=== PATIENT | female | born 1980 | race Caucasian/White ===

== ENCOUNTER 2020-05-02 12:26 | Outpatient (CLI) | payer OTHER, SELFPAY ==
[2020-05-02 14:38] LABS: SARS-CoV-2 Ag Negative (Negative)
[2020-05-03 14:04] LABS: SARS-CoV-2 RNA PCR Positive
== END 2020-05-02 12:27 | disposition home or self-care (01) ==
LOC: CHSLAB 12:32
PROVIDERS: PCP Family Medicine; Visit Provider Family Medicine
DX: Z20.828 Contact with and (suspected) exposure to other viral communicable diseases (principal)
CPT/HCPCS: 87426; 87635; C9803; U0003

== ENCOUNTER → 2020-09-23 01:06 | Outpatient (CLI) | payer OTHER, SELFPAY ==
[2020-09-23 18:53] LABS: SARS-CoV-2 RNA PCR Negative
== END ==
PROVIDERS: PCP Internal Medicine; Visit Provider Internal Medicine Gastroenterology
DX: Z01.812 Encounter for preprocedural laboratory examination (principal); Z20.822 Contact with and (suspected) exposure to COVID-19
CPT/HCPCS: C9803; U0003; U0005

== ENCOUNTER 2020-09-26 01:02 | Day surgery (SDC) | payer OTHER, SELFPAY ==
[2020-09-18 12:47] VITALS: BMI 44.1
[2020-09-26 12:13] VITALS: BP 140/101; PULSE 92; RESP 20; TEMP 36.6; O2SAT 100; BMI 44.4
[2020-09-26] MEDS: LACTATED RINGERS 1,000 ML 150 ML IV CONT (12:24)
--- NOTE | 2020-09-26 13:09 | WPDANESEPPF ---
Anes - Initial Pre Proc Eval Procedure: Operation Date: 09/26/20 13:00 Proposed Procedures p Esophagogastroduodenoscopy - Timur Partida MD Date/Time: 09/26/20 13:09 Surgeon: Timur Partida MD Pre Op Diagnosis: GERD Patient Data Age: 40 Gender: F Height: 5 ft 3 in Weight: 113.6 kg Last Vital Signs Temp 97.8 F 09/26/20 12:13 Pulse 92 09/26/20 12:13 Resp 20 09/26/20 12:13 BP 140/101 H 09/26/20 12:13 Pulse Ox 100 09/26/20 12:13 Allergies Allergy/AdvReac Type Severity Reaction Status Date / Time No Known Allergies Allergy Verified 09/26/20 12:11 Home Medications Medication Instructions Recorded Confirmed Type valacyclovir 1 gram tablet 1,000 mg PO DAILY 30 Days #30 06/29/20 09/13/20 Rx tablet phentermine 37.5 mg capsule 37.5 mg PO DAILY 30 Days #30 cap 07/27/20 09/13/20 Rx pantoprazole 40 mg tablet,delayed 40 mg PO QAM 30 Days #30 tablet 09/19/20 09/26/20 Rx release Patient hx anesthesia problems: none Family hx anesthesia problems: none PMFSH Past Medical History Medical History (Updated 09/26/20 @ 13:08 by Oskar Duran MD) Chronic GERD Obesity, morbid, BMI 40.0-49.9 Social History Social History Smoking status: Former smoker Tobacco type: cigarettes Alcohol intake: current Drinks per week: 1 Substance use: former Living arrangements: with family Gender identity (if verbalized by the patient): Female Spiritual care concerns: No Anes - Eval Final PreProcedure Day of Procedure 09/26/20 13:09 Patient weight: morbidly obese Heart: regular rate and rhythm Lungs: clear to auscultation Airway: Mallampati scale class III Neurological: alert and oriented Last oral intake: >/= 8 hours ASA classification: III Emergent: no Anesthetic plan: proceed Anesthesia type and monitoring: general GIVS and standard monitoring Informed Consent: The patient's anesthetic plan and its attendant risks and benefits were discussed with the patient/family/POA. Questions were solicited and answers provided to the satisfaction of the patient/family/POA.
--- NOTE | 2020-09-26 13:41 | PM.HPGS ---
History of Present Illness History of Present Illness Consent: Risks, benefits, and alternatives have been discussed and questions answered. Patient agrees to proceed with procedure. Chief complaint: GERD Narrative: Saira Ramirez is a 40 year old female with gerd for more than 10 years on protonix Review of Systems Constitutional: Constitutional: Denies headache(s) and Denies weakness Eyes: Eyes: Denies blurry vision ENT: Reports Normal hearing present, Denies headache(s) and Denies neck pain Cardiovascular: Cardiovascular: Denies chest pain and Denies dyspnea Respiratory: Respiratory: Denies dyspnea Gastrointestinal: Gastrointestinal: Reports no additional gastrointestinal complaints Genitourinary: Genitourinary: Denies dysuria Musculoskeletal: Musculoskeletal: Denies neck pain Integumentary/Breasts: Skin/Breast: Denies dry skin Neurologic: Reports Normal hearing present, Denies headache(s) and Denies weakness Psychiatric: Psychiatric: Denies anxiety Endocrine: Endocrine: Denies change in body appearance Hematologic/Lymphatic: Hematologic/Lymphatic: Denies easy bleeding Allergic/Immunologic: Allergic/Immunologic: Denies urticaria PMFSH Past Medical History Medical History (Updated 09/26/20 @ 13:41 by Timur Partida MD) Chronic GERD Obesity, morbid, BMI 40.0-49.9 Social History Social History Smoking status: Former smoker Tobacco type: cigarettes Alcohol intake: current Drinks per week: 1 Substance use: former Living arrangements: with family Gender identity (if verbalized by the patient): Female Spiritual care concerns: No Meds Home Medications and Allergies Home Medications Medication Instructions Recorded Confirmed Type valacyclovir 1 gram tablet 1,000 mg PO DAILY 30 Days #30 06/29/20 09/13/20 Rx tablet phentermine 37.5 mg capsule 37.5 mg PO DAILY 30 Days #30 cap 07/27/20 09/13/20 Rx pantoprazole 40 mg tablet,delayed 40 mg PO QAM 30 Days #30 tablet 09/19/20 09/26/20 Rx release Allergies Allergy/AdvReac Type Severity Reaction Status Date / Time No Known Allergies Allergy Verified 09/26/20 12:11 Vital Signs Vital Signs - 24 hr 09/26/20 12:13 Temperature 97.8 F Pulse Rate 92 Respiratory Rate 20 Blood Pressure 140/101 H Pulse Oximetry 100 Exam Const: General: comfortable and no acute distress HENMT: General nose exam: Normal nares present Eyes: General: appearance normal, both eyes and all related structures Neck: Neck: no JVD Resp: Auscultation: clear to auscultation bilaterally Cardio: Rate: regular rate Rhythm: regular rhythm GI: Inspection: non-distended GI Palp: Yes Soft to palpation Skin: General skin exam: normal color Neuro: General: gait normal Speech: normal speech Extrem: General: normal to inspection Psych: Mental Status: mental status grossly normal Assessment and Plan Assessment and plan (1) Chronic GERD: Code(s): K21.9 - Gastro-esophageal reflux disease without esophagitis Status: Acute Assessment and Plan: egd with bx, already on ppi
[2020-09-26 13:53] VITALS: BP 104/66; PULSE 83; RESP 27; O2SAT 100
[2020-09-26 14:03] VITALS: BP 116/68; PULSE 77; RESP 24; O2SAT 100
[2020-09-26 14:13] VITALS: BP 111/72; PULSE 67; RESP 20; O2SAT 100
== END 2020-09-26 14:20 | disposition home or self-care (01) ==
PROVIDERS: PCP Internal Medicine; Visit Provider Internal Medicine Gastroenterology
PROC: 0DJ08ZZ Inspection of Upper Intestinal Tract, Via Natural or Artificial Opening Endoscopic (ICD-10-PCS; CPT 43235; principal; 2020-09-26 13:00)
DX: K21.00 Gastro-esophageal reflux disease with esophagitis, without bleeding (principal); K44.9 Diaphragmatic hernia without obstruction or gangrene; K29.50 Unspecified chronic gastritis without bleeding; Z87.891 Personal history of nicotine dependence; E66.01 Morbid (severe) obesity due to excess calories; Z68.41 Body mass index [BMI] 40.0-44.9, adult
CPT/HCPCS: 43239; 88305; J2704; J7120

== ENCOUNTER 2022-05-01 00:41 | Day surgery (SDC) | payer OTHER, SELFPAY ==
[2022-04-24 10:33] VITALS: BMI 46.8
[2022-05-01 12:14] VITALS: BP 146/84; PULSE 95; RESP 18; TEMP 36.2; O2SAT 100; BMI 47.0
[2022-05-01] MEDS: LACTATED RINGERS 1,000 ML 150 ML IV CONT (12:23)
--- NOTE | 2022-05-01 12:25 | PM.HPGS ---
History of Present Illness History of Present Illness Consent: Risks, benefits, and alternatives have been discussed and questions answered. Patient agrees to proceed with procedure. Chief complaint: Diarrhea Narrative: Saira Palafox is a 41 year old female with ibs-d using imodium prn, she has not had the change to use questran yet. Review of Systems Constitutional: Constitutional: Denies headache(s) and Denies weakness Eyes: Eyes: Denies blurry vision ENT: Reports Normal hearing present, Denies headache(s) and Denies neck pain Cardiovascular: Cardiovascular: Denies chest pain and Denies dyspnea Respiratory: Respiratory: Denies dyspnea Gastrointestinal: Gastrointestinal: Reports no additional gastrointestinal complaints Genitourinary: Genitourinary: Denies dysuria Musculoskeletal: Musculoskeletal: Denies neck pain Integumentary/Breasts: Skin/Breast: Denies dry skin Neurologic: Reports Normal hearing present, Denies headache(s) and Denies weakness Psychiatric: Psychiatric: Denies anxiety Endocrine: Endocrine: Denies change in body appearance Hematologic/Lymphatic: Hematologic/Lymphatic: Denies easy bleeding Allergic/Immunologic: Allergic/Immunologic: Denies urticaria PMFSH Past Medical History Medical History (Updated 03/21/22 @ 15:09 by Timur Partida MD) ADD (attention deficit disorder) Chronic GERD Obesity, morbid, BMI 40.0-49.9 Surgical History Surgical History (Updated 03/21/22 @ 15:09 by Timur Partida MD) History of cholecystectomy 2015 Social History Social History Smoking status: Former smoker Tobacco type: cigarettes Alcohol intake: current Drinks per week: 1 Alcohol use details: socially Substance use: never Substance use type: does not use Living arrangements: with family Gender identity (if verbalized by the patient): Female Spiritual care concerns: No Meds Home Medications and Allergies Home Medications Medication Instructions Recorded Confirmed Type pantoprazole 40 mg tablet,delayed 40 mg PO QAM 30 days #30 tabs 01/30/22 04/24/22 Rx release valacyclovir 500 mg tablet 500 mg PO DAILY 30 days #30 tabs 01/30/22 04/24/22 Rx dextroamphetamine-amphetamine 30 30 mg PO BID #60 tabs 10/20/22 11/09/22 Rx mg tablet (Adderall) Allergies Allergy/AdvReac Type Severity Reaction Status Date / Time No Known Allergies Allergy Verified 05/01/22 12:13 Vital Signs Vital Signs - 24 hr 05/01/22 12:14 Temperature 97.2 F L Pulse Rate 95 Respiratory Rate 18 Blood Pressure 146/84 H Pulse Oximetry 100 Oxygen Delivery Room Air Exam Const: General: comfortable and no acute distress HENMT: Face/Nose/Sinus: Normal nares present Eyes: General: appearance normal, both eyes and all related structures Neck: Neck: no JVD Resp: Auscultation: clear to auscultation bilaterally Cardio: Rate: regular rate Rhythm: regular rhythm GI: Inspection: non-distended GI Palp: Yes Soft to palpation Skin: General skin exam: normal color Neuro: General: gait normal Speech: normal speech Extrem: General: normal to inspection Psych: Mental Status: mental status grossly normal Assessment and Plan Assessment and plan (1) Irritable bowel syndrome with diarrhea: Code(s): K58.0 - Irritable bowel syndrome with diarrhea Status: Acute Assessment and Plan: colonoscopy with random biopsies (2) History of cholecystectomy: Code(s): Z90.49 - Acquired absence of other specified parts of digestive tract Status: Acute
[2022-05-01 12:50] VITALS: BP 108/63; PULSE 86; RESP 34; O2SAT 100
[2022-05-01 13:00] VITALS: BP 123/63; PULSE 71; RESP 20; O2SAT 100
[2022-05-01 13:10] VITALS: BP 138/92; PULSE 73; RESP 20; O2SAT 100
== END 2022-05-01 13:21 | disposition home or self-care (01) ==
PROVIDERS: PCP Physician Assistant Medical; Visit Provider Internal Medicine Gastroenterology
PROC: 0DJD8ZZ Inspection of Lower Intestinal Tract, Via Natural or Artificial Opening Endoscopic (ICD-10-PCS; CPT 45378; principal; 2022-05-01 13:30)
DX: K58.0 Irritable bowel syndrome with diarrhea (principal); K57.30 Diverticulosis of large intestine without perforation or abscess without bleeding; D12.5 Benign neoplasm of sigmoid colon; F98.8 Other specified behavioral and emotional disorders with onset usually occurring in childhood and adolescence; K21.9 Gastro-esophageal reflux disease without esophagitis; E66.01 Morbid (severe) obesity due to excess calories; Z68.42 Body mass index [BMI] 45.0-49.9, adult; Z90.49 Acquired absence of other specified parts of digestive tract
CPT/HCPCS: 45380; 45385; 88305; J2704; J7120

== ENCOUNTER 2022-05-24 11:40 | Outpatient (CLI) | payer OTHER, SELFPAY ==
--- NOTE | ~2022-05-24 | XR_ITS ---
XR knee LT 3V DATE: 05/24/2022 12:37 INDICATION: Fall one week ago. Anteromedial left knee pain TECHNIQUE: [place], AP and lateral views COMPARISON: None FINDINGS: Moderate periarticular spurring at the patellofemoral compartment. Mild periarticular spurr ing at the medial compartment. Knee joint spaces appear relatively preserved. No fracture or dislocation or joint effusion. No periosteal reaction or bone destruction. No radiopaq ue intra-articular loose body or chondrocalcinosis. IMPRESSION: Patellofemoral and medial compartment osteoarthritis Reviewed, dictated and finalized at location B. TER POCKET TRIMMER
== END 2022-05-24 11:41 | disposition home or self-care (01) ==
PROVIDERS: PCP Physician Assistant Medical; Visit Provider Physician Assistant Medical
DX: M25.562 Pain in left knee (principal); M17.12 Unilateral primary osteoarthritis, left knee
CPT/HCPCS: 73562

== ENCOUNTER 2022-06-19 07:30 | Outpatient (RCR) | payer OTHER, SELFPAY | END 2022-07-10 10:58 | disposition home or self-care (01) | LOC: ANHHIPT 07:30 | PROVIDERS: PCP Physician Assistant Medical; Visit Provider Physician Assistant Medical | DX: M25.562 Pain in left knee (principal) | CPT/HCPCS: 99199 ==

== ENCOUNTER 2022-07-30 08:35 | Outpatient (CLI) | payer OTHER, SELFPAY ==
--- NOTE | ~2022-07-30 | XR_ITS ---
EXAMINATION: XR fl inj knee LT for MR/CT DATE: 07/30/2022 09:29 INDICATION: Left knee pain. No prior surgery. TECHNIQUE: A time-out was performed to verify the patient's name, date of , and procedure to b e performed. The procedure including the risks, benefits, and alternatives was discussed with the pat ient. Risks discussed included bleeding and infection. The patient understood the risks and agreed to proceed. The skin overlying the left knee joint was prepped and draped in usual sterile fashion. An esthetic was administered with 1% lidocaine subcutaneously. A 22 G needle was advanced under fluoros copic guidance into the joint. Subsequently, injectate consisting of 30 mL of 1:200 Multihance, 1:4 1% lidocaine, and 1:4 Omnipaque 240 was instilled. The needle was removed and the entry site was jesse aned and dressed. There were no immediate complications. Fluoroscopy exposure time was 0.1 minutes. The total number of images was 2. FINDINGS: Real-time fluoroscopy demonstrates the needle and contrast in the left knee joint. IMPRESSION: 1. Successful left knee joint injection of contrast for subsequent MR arthrography. Reviewed, dictated and finalized at location A. AL WORK PROFESSOR IMPRESSION: 1. Successful left knee joint injection of contrast for subsequent MR arthrogra phy.
--- NOTE | ~2022-07-30 | MR_ITS ---
EXAMINATION: MR knee LT w con DATE: 07/30/2022 10:16 INDICATION: Left knee pain. TECHNIQUE: Magnetic resonance imaging (MRI) of the left knee was performed without intravenous contra st after intra-articular injection of contrast (MR arthrogram). COMPARISON: Left knee radiographs 05/24/2022 FINDINGS: Medial compartment: Medial meniscus is normal. There is cartilage surface irregularity of tibial condyle. There is partia l-thickness cartilage loss of femoral condyle, deep at the central and posterior articular surface. T here is moderate subchondral edema-like marrow signal intensity in femoral condyle. Osteophytes are n oted. Lateral compartment: Lateral meniscus is normal. Lateral compartment cartilage is normal. There are tiny osteophytes. Patellofemoral compartment: There is full-thickness cartilage loss of patellar lateral facet with mild subchondral edema-like mar row signal intensity. There is deep partial thickness cartilage loss of medial, central, and lateral trochlea. Osteophytes are noted. Ligaments and tendons: The anterior and posterior cruciate ligaments are normal. Medial collateral ligament and lateral kyra ateral ligament complex are normal. The patellar tendon is normal. Fluid: The knee joint is well distended by contrast. There is a moderate-sized Dela Cruz's cyst containing contr ast. There is mild superficial infrapatellar bursitis. IMPRESSION: 1. Moderate chondrosis of medial compartment and severe chondrosis of patellofemoral compartment. 2. Moderate-sized Dela Cruz's cyst. Reviewed, dictated and finalized at location A. ECTOR TESTER SORTER IMPRESSION: 1. Moderate chondrosis of medial compartment and severe chondrosis of patellofe moral compartment. 2. Moderate-sized Dela Cruz's cyst.
== END 2022-07-30 08:36 | disposition home or self-care (01) ==
PROVIDERS: PCP Physician Assistant Medical; Visit Provider Orthopaedic Surgery
DX: M22.42 Chondromalacia patellae, left knee (principal); M71.22 Synovial cyst of popliteal space [Baker], left knee
CPT/HCPCS: 20610; 73722; 77002; A9577; Q9966

== ENCOUNTER 2023-05-13 13:29 | Outpatient (CLI) | payer OTHER, SELFPAY ==
[2023-05-13 13:56] LABS: Basophils Percent Auto 0.6 % (0.2-1.2); Eosinophils Absolute Auto 0.2 K/mm3 (0-0.3); Eosinophils Percent Auto 2.5 % (0-4.4); Hematocrit 37.6 % (37.0-47.0); Hemoglobin 11.7 g/dL (12.0-15.0); Immature Granulocyte Absolute 0.03 K/mm3 (0.00-0.031); Immature Granulocyte Percent A 0.4 % (0-0.5); Lymphocytes Absolute Auto 2.34 K/mm3 (0.9-3.2); Mean Corpuscular HGB Conc 31.1 g/dl (32-36); Mean Corpuscular Hemoglobin 28.4 pg (26-34); Mean Corpuscular Volume 91.3 fl (80-100); Mean Platelet Volume 9.9 fl (7.4-10.4); Monocytes Absolute Auto 0.6 K/mm3 (0.1-0.6); Neutrophils Absolute Auto 3.9 K/mm3 (1.3-6.7); Neutrophils Percent Auto 55.5 % (45.5-73.1); Platelet Count Result 306 k/mm3 (150-375); Red Blood Count 4.12 M/mm3 (4.2-5.4); Red Cell Distribution Width 17.1 % (11.5-14.5); White Blood Count 7.1 K/mm3 (4.5-10.0)
== END 2023-05-13 13:30 | disposition home or self-care (01) ==
LOC: ANHLAB 13:31
PROVIDERS: PCP Physician Assistant Medical; Visit Provider Obstetrics & Gynecology
DX: D64.9 Anemia, unspecified (principal); N92.0 Excessive and frequent menstruation with regular cycle
CPT/HCPCS: 36415; 82728; 85025

== ENCOUNTER 2024-10-14 08:25 | Outpatient (CLI) | payer BC, SELFPAY ==
--- OUTSIDE RECORDS SUMMARY | 2024-10-14 08:32 | XMS_ITS | Clinical Summary ---
Author Organization [facility] Address [address] [place] [address] Phone Care Team Providers Care Sharebroker Name Role Phone Unavailable Primary Care Provider Unavailabl e Allergies No known active allergies Medications dextroamphetami ne-amphetamine (ADDERALL) 30 mg tablet Take 30 mg by mouth 2 times daily. 4 Active valACYclovir (VALTREX) 1 gram tablet Take 1,000 mg by mouth daily at bedtime. 4 Active fluorometholone (FML) 0.1 % suspension Administer 1 Drop in both eyes 1 time daily as needed for Other (See Comment). 4 Active oxyCODONE (ROXICODONE) 5 mg/5 mL solutionIndicat ions:Morbid obesity with body mass index of 40.0-49.9 (CMS/HCC) Take 5 mL (5 mg) by mouth every 4 hours as needed for break-through pain. Max Daily Amount: 30 mg 210 mL 06/08/2024 1:51 PM AUTOMOTIVE PRODUCT SPECIALIST 4 Active famotidine (PEPCID) 20 mg tablet Take 1 Tablet (20 mg) by mouth 2 times daily. 60 Tablet 2 06/08/2024 1:51 PM AUTOMOTIVE PRODUCT SPECIALIST 4 Active ondansetron (Zofran) 4 mg Tablet Take 1 Tablet (4 mg) by mouth every 8 hours as needed for Nausea or Vomiting. 50 Tablet 06/08/2024 1:51 PM AUTOMOTIVE PRODUCT SPECIALIST 4 Active Encounters Date Type Department Care Team Description 09/28/2024 External Device Data [facility] ABSTRACTION Provider, Abstract 09/21/2024 External Device Data [facility] ABSTRACTION Provider, Abstract 09/14/2024 External Device Data [facility] ABSTRACTION Provider, Abstract 09/01/2024 External Device Data [facility] ABSTRACTION Provider, Abstract 08/23/2024 External Device Data [facility] ABSTRACTION Provider, Abstract 08/21/2024 External Device Data [facility] ABSTRACTION Provider, Abstract 08/21/2024 External Device Data [facility] ABSTRACTION Provider, Abstract 08/18/2024 External Device Data [facility] ABSTRACTION Provider, Abstract 08/10/2024 External Device Data ST[facility] ABSTRACTION Provider, Abstract from Last 3 Months Social History Tobacco Use Types Packs/Day Years Used Date Smoking Tobacco: Former Cigarettes Q uit: 04/2021 Smokeless Tobacco: Never Tobacco Cessation:Counseling Given: Not Answered Alcohol Use Standard Drinks/Week Comments Yes 3 (1 standard drink = 0.6 oz pur e alcohol) socially Feeling Safe Answer Date Recorded Are you in a relationship wi th someone who hurts you emotionally and/or physically? No 06/07/2024 Food Insecurity Answer Date Recorded Patient needs follow up regardin 10/07/2024 Transportation Needs Answer Date Record ed Patient needs follow up regardin 10/07/2024 Housing Stability Answer Date Recorded Social/Environmental Concerns No concerns Utility Needs Answer Date Recorded Patient needs follow up regardin 10/07/2024 Comments No Sex and Gender Information Value Date Recorded Sex Assigned at Not on file Legal Sex Female 12:00 PM CDT Gender Identity Not on file Sexual Orientation Not on file Last Filed Vital Signs Vital Sign Reading Time Taken Comments Blood Pressure 130/72 06/08/2024 11:39 AM AUTOMOTIVE PRODUCT SPECIALIST Pulse 78 06/08/2024 11:39 AM AUTOMOTIVE PRODUCT SPECIALIST Temperature 36.4 C (97.5 F) 06/08/2024 11:39 AM AUTOMOTIVE PRODUCT SPECIALIST Respiratory Rate 19 06/08/2024 11:39 AM AUTOMOTIVE PRODUCT SPECIALIST Oxygen Saturation 96% 06/08/2024 11:39 AM AUTOMOTIVE PRODUCT SPECIALIST Inhaled Oxygen Concentration - - Weight 123.4 kg (272 lb) 06/07/2024 11:57 AM AUTOMOTIVE PRODUCT SPECIALIST Height 162.6 cm (5' 4 ) 06/07/2024 11:57 AM AUTOMOTIVE PRODUCT SPECIALIST Body Mass Index 46.69 06/07/2024 11:57 AM AUTOMOTIVE PRODUCT SPECIALIST Plan of Treatment Health Maintenance Due Date Last Done Comments Pre-Diabetes and Diabetes Screening 1981 DTAP/TDAP/TD VACCINES (1 - Tdap) 2000 HEPATITIS B VACCINES (1 of 3 - 19+ 3-dose series) 2000 HPV/Cotest (21-29) 2002 CERVICAL CANCER SCREENING 08/18/2011 HPV/Cotest (30-65) 08/18/2011 PAP SMEAR 08/18/2011 BREAST CANCER SCREENING 2021 INFLUENZA VACCINE (#1) 2024 COVID-19 Vaccine ( season) 2024 04/13/2021, 03/23/2021 HPV VACCINES Aged Out No longer eligi ble based on patient's age to complete this topic Medical Devices Implanted Type Area Operations Expert Device Identifier Shelf Expiration Date Model / Serial / Lot Seamguard Endopath 60 [id number] - [id number] Implanted:Qt y: 1 on 06/07/2024 by Susan Deleon MD at [facility] N/A: Stomach [employer] [id number] 02/28/2027 [id number] 0A / / [id number] Seamguard Endopath 60 [id number] - [id number] Implanted:Qt y: 1 on 06/07/2024 by Susan Deleon MD at [facility] N/A: Stomach [employer] [id number] 02/28/2027 [id number] [id number] / / [id number] Seamguard Endopath 60 [id number] - [id number] Implanted:Qt y: 1 on 06/07/2024 by Susan Deleon MD at [facility] N/A: Stomach [employer] [id number] 02/28/2027 [id number] 0A / / [id number] Seamguard Endopath 60 [id number] - [id number] Implanted:Qt y: 1 on 06/07/2024 by Susan Deleon MD at [facility] N/A: Stomach [employer] [id number] 02/28/2027 [id number] 0A / / [id number] Seamguard Endopath 60 [id number] - [id number] Implanted:Qt y: 1 on 06/07/2024 by Susan Deleon MD at [facility] Biological N/A: Stomach [employer] [id number] 02/28/2027 [id number] [id number] / / [id number] Airline Counter Agent Ligamax Endo Multi Clip 5mm [id number] - [id number] Implanted:Qt y: 1 on 06/07/2024 by Susan Deleon MD at [facility] Clip N/A: Abdomen [employer]- [employer] 03/15/2029 [id number] / / [id number] Insurance BCBS BLUE ACCESS/TRUE BLUE PPO RX PRIME [employer]ER[employer] Commercial Advance Directives For more information, please contact: [phone] * Full Code (Latest Code Status on File) Date Activated Date Inactivated Comments 06/07/2024 5:24 PM 06/08/2024 4:31 PM * Full Code Date Activated Date Inactivated Comments 06/07/2024 11:57 AM 06/07/2024 5:24 PM
--- OUTSIDE RECORDS SUMMARY | 2024-10-14 08:32 | XMS_ITS | Clinical Summary ---
Author Organization [facility] Virtual Care Address [address] [place] [address] Phone Care Team Providers Care Vp Emerging Media Name Role Phone Chris Lorenzo MD Primary Care Provider [phone] Allergies No known active allergies Medications dextroamphetami ne-amphetamine (ADDERALL) 30 mg tablet TAKE 1 TABLET BY MOUTH TWICE DAILY 4 TO 6 HOURS APART 01/16/[address] (PROTONIX) 40 mg EC tablet Take 1 tablet (40 mg total) by mouth every morning 02/05/2024 Active traMADoL (ULTRAM) 50 mg tablet Take by mouth every 6 (six) hours as needed 01/16/2024 Active valACYclovir (VALTREX) 1 gram tablet Take 1 tablet (1,000 mg total) by mouth daily 02/07/2024 Active meloxicam (MOBIC) 7.5 mg tabletIndicatio ns:Osteoarthrit is Take 1 tablet (7.5 mg total) by mouth daily 30 tablet 1 03/31/2024 Active fluorometholone (FML) 0.1 % ophthalmic suspension 04/07/2024 Active cyclobenzaprine (FLEXERIL) 5 mg tablet Take 1 tablet (5 mg total) by mouth 2 (two) times a day as needed 04/09/2024 Active Active Problems Problem Noted Date Diagnosed Date Abnormal uterine bleeding (AUB) 04/18/2023 Anemia 04/04/2023 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 2-4 times a month 03/16/2024 Average Number of Drinks Not on file 024 Frequency of Binge Drinking Not on file 06/2023 Comments Unknown Sex and Gender Information Value Date Recorded Sex Assigned at Not on file Legal Sex Female 1:21 PM CDT Gender Identity Not on file Sexual Orientation Not on file Obstetrics History Last Filed Vital Signs Vital Sign Reading Time Taken Comments Blood Pressure - - Pulse - - Temperature - - Respiratory Rate - - Oxygen Saturation - - Inhaled Oxygen Concentration - - Weight 124.7 kg (275 lb) 03/16/2024 10:54 AM CDT Height 160 cm (5' 3 ) 03/16/2024 10:54 AM CDT Body Mass Index 48.71 03/16/2024 10:54 AM CDT Plan of Treatment Health Maintenance Due Date Last Done Comments Breast Cancer Screening-Mammogram 1981 Cervical Cancer Screening 1981 Depression Screening 1981 Hepatitis C Screening 1981 DTaP/Tdap/Td Vaccine (1 - Tdap) 1992 Varicella Vaccines (1 of 2 - 13+ 2-dose series) 1994 Hepatitis B Screening 08/18/1999 Regular Well Visit/Exam 18-64 08/18/1999 Covid-19 Vaccine (3 - 2023-2 5 season) 2024 04/13/2021, 03/23/2021 Influenza Vaccine (#1) 2024 HPV Vaccines Aged Out No longer eligi ble based on patient's age to complete this topic Pneumococcal vaccine <65 Aged Out No longer eligible based on patient's age to complete this topic Insurance [place] Care Teams Vp Emerging Media Relationship Specialty Start Date End Date Chris Lorenzo MD [address] [place] [id number] PCP - General Family Medicine 02/24/24
--- OUTSIDE RECORDS SUMMARY | 2024-10-14 08:32 | XMS_ITS | Clinical Summary ---
Author Organization [facility] Address [facility] [place] [address] Care Team Providers Care Repairer Auto Clocks Name Role Phone Chris Lorenzo MD Primary Care Provider [phone] Allergies No known active allergies Medications valACYclovir 1 g tabletIndication s:Healthcare maintenance Take 1 tablet (1,000 mg total) by mouth every other day. 30 tablet 2 01/13/2019 Active amphetamine-dext roamphetamine (ADDERALL) 30 MG tablet Take 1 tablet (30 mg total) by mouth 2 (two) times daily. 07/11/2023 Active pantoprazole EC (PROTONIX) 40 MG tablet Take 1 tablet (40 mg total) by mouth daily. 07/25/2023 Active meloxicam (MOBIC) 15 MG tabletIndication s:Acute bilateral low back pain without sciatica Take 1 tablet (15 mg total) by mouth daily. 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 Obesity 02/09/2015 Immunizations Immunization Administration Dates Next Due PFIZER COVID-19 (ORIGINAL FO RMULATION, PURPLE CAP) mRNA, LNP-S, PF, 30 MCG/0.3 ML DOSE 04/13/2021,03/23/2021 Family History Relation Status Comments Brother Alive Daughter Alive Father Other don't know any h istory about father Mother Alive Son Alive Social History Tobacco Use Types Packs/Day Years Used Date Smoking Tobacco: Former Cigarettes Q uit: 04/2021 Smokeless Tobacco: Never Tobacco Cessation:Counseling Given: Yes Alcohol Use Standard Drinks/Week Comments Yes 0 (1 standard drink = 0.6 oz pur e alcohol) socially PHQ-2 Answer Date Recorded Patient Health Questionnaire-2 Score 0 04/18/2023 Comments No Sex and Gender Information Value Date Recorded Sex Assigned at Female 01/06/2023 10:28 AM CDT Legal Sex Female 5:43 PM CDT Gender Identity Female 01/06/2023 10:28 AM CDT Sexual Orientation Don't know 01/06/2023 10 :28 AM CDT Last Filed Vital Signs Vital Sign Reading Time Taken Comments Blood Pressure 137/87 04/09/2024 10:16 AM CDT Pulse 89 04/09/2024 10:16 AM CDT Temperature 36.6 C (97.9 F) 04/09/2024 10:16 AM CDT Respiratory Rate 14 04/09/2024 10:16 AM CDT Oxygen Saturation 94% 04/09/2024 10:16 AM CDT Inhaled Oxygen Concentration - - Weight 122.5 kg (270 lb) 04/09/2024 10:16 AM CDT Height 160 cm (5' 3 ) 04/09/2024 10:16 AM CDT Body Mass Index 47.83 04/09/2024 10:16 AM CDT Plan of Treatment Health Maintenance Due Date Last Done Comments Cervical Cancer Screening Pa p Smear (Age 30 to 64) Every 3 Years 1981 Annual Physical 1984 Hepatitis C 08/18/1999 DTaP, Tdap and Td Vaccines ( 1 - Tdap) 2000 Hepatitis B Vaccines (1 of 3 - 19+ 3-dose series) 2000 Cervical Cancer Screening Pa p with HPV Testing (Age 30 to 64) Every 5 Years 08/18/2011 Cervical Cancer Screening wi th HPV 08/18/2011 Mammogram Screening 2021 COVID-19 Vaccine ( - 2023-2 5 season) 2024 04/13/2021, 03/23/2021 PHQ-2 (Physician [place]) 06/16/2024 04/18/2023 HPV Vaccines Aged Out No longer eligi ble based on patient's age to complete this topic Meningococcal B Vaccine Aged Out No l onger eligible based on patient's age to complete this topic Meningococcal Vaccine Aged Out No andres lucrecia eligible based on patient's age to complete this topic Pneumococcal Vaccine: Pediatrics (0 to 5 Years) and At-Risk Patients (6 to 49 Years) Aged Out No longer eligible b ased on patient's age to complete this topic RSV Immunizations Under 20 Months Aged Out No longer eligible b ased on patient's age to complete this topic [place] [address] [place] [address] Advance Directives * Full Code (Latest Code Status on File) Date Activated Date Inactivated Comments 08/05/2023 12:43 PM 08/05/2023 4:36 PM Care Teams Repairer Auto Clocks Relationship Specialty Start Date End Date Chris Lorenzo MD [address] [place] [id number] PCP - General FAMILY PRACTICE 01/06/23
--- OUTSIDE RECORDS SUMMARY | 2024-10-14 08:32 | XMS_ITS | Encounter Summary ---
Author Organization [facility] Address [facility] [place] [address] Care Team Providers Care Injection Molding Machine Tender Name Role Phone Hieu Rincon MD Primary Care Provider Chris Montoya MD Primary Care Provider [phone] Encounter Details Date Type Department Care Team (Late st Contact Info) Description 12/31/2022 Prep for Procedure [facility] [address] [place] [address] [place] [address] [address] Social History Tobacco Use Types Packs/Day Years Used Date Smoking Tobacco: Former Cigarettes Q uit: 04/2021 Smokeless Tobacco: Never Alcohol Use Standard Drinks/Week Comments Not Asked 0 (1 standard drink = 0.6 oz pur e alcohol) socially Comments No Sex and Gender Information Value Date Recorded Sex Assigned at Female 01/06/2023 10:28 AM CDT Legal Sex Female 5:43 PM CDT Gender Identity Female 01/06/2023 10:28 AM CDT Sexual Orientation Don't know 01/06/2023 10 :28 AM CDT documented as of this encounter Plan of Treatment Not on file documented as of this encounter Visit Diagnoses Diagnosis Pre-op testing- Primary Preoperative examination, unspecified documented in this encounter Care Teams Injection Molding Machine Tender Relationship Specialty Start Date End Date Hieu Rincon MD PCP - General INTERNAL MEDICINE 01/13/19 01/05/23 Chris Lorenzo MD [address] [place] [id number] PCP - General FAMILY PRACTICE 01/06/23 documented as of this encounter
--- OUTSIDE RECORDS SUMMARY | 2024-10-14 08:32 | XMS_ITS | Referral Summary ---
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
--- OUTSIDE RECORDS SUMMARY | 2024-10-14 08:32 | XMS_ITS | Encounter Summary ---
Author Organization [facility] Address [facility] [place] [address] Care Team Providers Care Electrical Manufacturing Engineer Name Role Phone Chris Lorenzo MD Primary Care Provider [phone] Encounter Details Date Type Department Care Team (Late st Contact Info) Description 04/04/2023 Therapy Plan [facility] [address] [place] [address] Radha Pepper MD [address] [place] [address] Social History Tobacco Use Types Packs/Day Years [...] as of this encounter Visit Diagnoses Diagnosis Anemia- Primary Anemia, unspecified documented in this encounter Care Teams Electrical Manufacturing Engineer Relationship Specialty Start Date End Date Chris Lorenzo MD [facility] [place], [place] [id number] PCP - General FAMILY PRACTICE 01/06/23 documented as of this encounter
[2024-10-14 08:55] LABS: Basophils Absolute Auto 0.1 K/mm3 (0.0-0.1); Basophils Percent Auto 0.5 % (0.2-1.2); Eosinophils Absolute Auto 0.2 K/mm3 (0-0.3); Hematocrit 41.6 % (37.0-47.0); Hemoglobin 13.9 g/dL (12.0-15.0); Immature Granulocyte Absolute 0.02 K/mm3 (0.00-0.031); Immature Granulocyte Percent A 0.2 % (0-0.5); Lymphocytes Absolute Auto 2.73 K/mm3 (0.9-3.2); Lymphocytes Percent Auto 29.8 % (18.3-44.2); Mean Corpuscular HGB Conc 33.4 g/dl (32-36); Mean Corpuscular Hemoglobin 30.2 pg (26-34); Mean Corpuscular Volume 90.4 fl (80-100); Mean Platelet Volume 9.4 fl (7.4-10.4); Monocytes Absolute Auto 0.7 K/mm3 (0.1-0.6); Monocytes Percent Auto 7.1 % (2.6-8.5); Neutrophils Absolute Auto 5.5 K/mm3 (1.3-6.7); Neutrophils Percent Auto 60.4 % (45.5-73.1); Platelet Count Result 349 k/mm3 (150-375); Red Cell Distribution Width 13.1 % (11.5-14.5); White Blood Count 9.2 K/mm3 (4.5-10.0)
== END 2024-10-14 08:26 | disposition home or self-care (01) ==
LOC: ANHLAB 08:26
PROVIDERS: PCP Nurse Practitioner Family; Visit Provider Nurse Practitioner Family
DX: D72.829 Elevated white blood cell count, unspecified (principal)
CPT/HCPCS: 36415; 85025

== ENCOUNTER 2025-04-22 16:16 | Outpatient (CLI) | payer BC, SELFPAY ==
[2025-04-22 16:42] LABS: Hematocrit 37.6 % (37.0-47.0); Hemoglobin 12.5 g/dL (12.0-15.0)
== END 2025-04-22 16:17 | disposition home or self-care (01) ==
LOC: ANHLAB 16:18
PROVIDERS: PCP Nurse Practitioner Family; Visit Provider Anesthesiology
DX: Z01.818 Encounter for other preprocedural examination (principal); D64.9 Anemia, unspecified; N92.0 Excessive and frequent menstruation with regular cycle
CPT/HCPCS: 36415; 85014; 85018; 86850; 86900; 86901

== ENCOUNTER 2025-05-04 00:08 | Day surgery (SDC) | payer BC, SELFPAY ==
--- NOTE | 2025-04-22 14:34 | SUR.PREOP ---
[facility] has started construction of its new state of the art ER which will open Spring 2026. With this, we anticipate parking may be a challenge for some our surgical patients and families. Parking spaces are limited but are available for all Surgical, obstetrics, and ER patients sharing this lot. If you arrive and find you are having a hard time finding a parking space, please note that we understand the challenges, please drive around the hospital and park near Hospital Entrance 1. When you enter this entrance, you can ask a volunteer to direct or take you back to the surgical waiting area to check in. We appreciate everyone?s understanding of these expected challenges while we build for your future. Report to the Outpatient Waiting Room, entrance under the green pavilion located off [address], at time _6AM__ on date _05/04/25_. Planned Procedure Time: _730AM_.? Time changes happen often and if your time is changed the preop area will call you the afternoon before. - You and your visitor will be asked to self-screen and do not enter if you have any COVID symptoms. Please call surgeon if you need to reschedule. - A mask is optional within the hospital at this time. Patients may have clear liquids (water, carbonated beverages, clear teas, apple juice) until 3 hours prior to surgery with a maximum of 20 ounces. - No food from midnight until time of surgery and no smoking, or chewing tobacco (or any form of nicotine). No chewing gum, candy or mints. Take only the following medications with a SIP of water on the morning of surgery: _valacyclovir, (tramadol if needed)__ DO NOT STOP ANY OF YOUR OTHER PRESCRIPTION MEDICATIONS PRIOR TO SURGERY EXCEPT THE FOLLOWING Hold all vitamins and supplements for 3 days per anesthesiologist. Medications to discontinue per physician _none__ Date to take last dose of vitamins_04/30/25_ Please no make-up, nail bengali, hairspray, perfume, deodorant, or body powder the day of surgery.? No jewelry (including any body piercings) or valuables the day of surgery, leave them at home.? Please take a shower or bath the night before, or the morning of, surgery with an antibacterial soap.? Wear comfortable, loose fitting clothing.? - Jewelry must be removed prior to entering the operating room.? Rings and piercings that are not removed may be cut off. - The hospital will not accept responsibility for valuables.? - Please leave all valuables, including medications, at home the day of surgery. If you are going home after surgery, a licensed local flatbed driver must drive you home.? - NO public transportation without another adult if you receive anesthesia. - We recommend that an adult stay with you for 24 hours following discharge. - We also recommend that you do not drive, make important decision, drink alcoholic beverages, or take any drugs that were not prescribed by your health care provider for at least 24 hours after your discharge time. Follow any additional instructions given to you from your surgeon. Telephone instructions given to _Saira__and asked if any additional questions and then verbalized understanding. Patient advised to call surgeon office or pre surgery nurse liaison [phone] if any additional questions.
[2025-04-22 14:37] VITALS: BMI 33.7
[2025-05-04] VITALS (9 sets, daily range): BP systolic 100–131; BP diastolic 61–87; PULSE 57–78; RESP 12–18; TEMP 36.4–37; O2SAT 98–100
--- OUTSIDE RECORDS SUMMARY | 2025-05-04 05:21 | XMS_ITS | Data Portability ---
Author Organization [facility] [place] Address [address] [place] [address] Assessment No assessment recorded. Plan of Treatment Reminders Order Date Submit Date Provider Last Modified By Organization Details Last Modified Time Details Appointments Robotic TLH 2024 07:30A Archana ALEX MD Not available Not available Not available SURG POST OP 2024 08:30A Archana ALEX MD Not available Not available Not available Lab None recorded. Referral None recorded. Procedures None recorded. Surgeries robotic assisted hysterect venita with salpingec misti (SURG) 2024 025 [id number] [facility], [facility] [address], [address], 02/15/2025 13:36:42 Imaging None recorded. Medication Orders None recorded. Patient TargetsNo targets recorded. Patient InstructionsNo instructions recorded. Reason for Referral None Reported. Procedures Surgical History Date Name Laterality Status Provider Name and Address Organization Details Recorded Time 4 Bariatric Surgery completed [facility] 02/04/2025 14:26:59 4 Colposcopy completed [facility] 02/04/2025 14:23:54 3 Endometrial Ablation completed [facility] 02/04/2025 14:26:59 3 Date of Last Pap Smear completed [facility] 02/04/2025 14:26:41 3 Date of Last Colonoscopy completed [facility] 02/04/2025 14:18:28 2 completed [facility] 02/04/2025 14:26:41 2 Colonoscopy completed [facility] 02/04/2025 14:26:59 1 Tubal Ligation completed [facility] 02/04/2025 14:26:59 1 Caesarean Section completed [facility] 02/04/2025 14:26:59 6 Caesarean Section completed [facility] 02/04/2025 14:27:53 Imaging Results None recorded. Procedure Notes None recorded. Medical Equipment None Reported. Allergies No known drug allergies Medications Name Sig Start Date Stop Date Status Note LastModified by Organization Details LastModified Time valacyclovi r 1 gram tablet TAKE 1 TABLET BY MOUTH ONCE DAILY active Not Available Not Available No t Available meloxicam 15 mg tablet TAKE 1 TABLET BY MOUTH ONCE DAILY 02/04 completed Not Available Not Available Not Available tramadol 50 mg tablet TAKE 1 TABLET BY MOUTH EVERY 6 HOURS NEEDED FOR PAIN 04/28 completed Not Available Not Available Not Available dextroamphe tamine-amph etamine 30 mg tablet TAKE 1 TABLET BY MOUTH TWICE DAILY ADMINISTE R DOSES AT LEAST 4-6 HOURS APART active Not Available Not Available No t Available famotidine 20 mg tablet TAKE 1 TABLET BY MOUTH TWICE A DAY 02/04 completed Not Available Not Available Not Available pantoprazol e 40 mg tablet,earline yed release TAKE 1 TABLET BY MOUTH IN THE MORNING active Not Available Not Available No t Available cyanocobala min (vit B-12) 1,000 mcg/mL injection solution INJECT 1ML INTO THE MUSCLE EVERY 3 WEEKS active Not Available Not Available No t Available fluorometho lone 0.1 % eye drops,suspe nsion INSTILL 1 DROP IN AFFECTED EYE 4 TIMES A DAY 02/04 completed Not Available Not Available Not Available BD Tuberculin Syringe 1 mL 25 gauge x 5/8 USE WITH VITAMIN BEFORE-12 EVERY 3 WEEKS 02/04 completed Not Available Not Available Not Available cyclobenzap rine 5 mg tablet TAKE 1 TABLET BY MOUTH 2 TIMES DAILY NEEDED. 02/04 completed Not Available Not Available Not Available Adderall (30mg) 02/04 completed Not Available Not Available Not Available Vitals Date Recorded Body height Body mass index (BMI) Body weight Systolic And Diastolic Provider Name and Address Organization Details Last Updated DateTime 02/04/2025 160.02 cm 36.1 kg/m2 91940.84 g 143/87 mm[Hg] [facility] 02/04/2025 14:14:17 Date Recorded Body height Body mass index (BMI) Body weight Systolic And Diastolic Provider Name and Address Organization Details Last Updated DateTime 04/28/2025 160.02 cm 34.9 kg/m2 34168.7 g 136/84 mm[Hg] [facility] 04/28/2025 11:53:01 Social History Question Answer Notes LastModified by Organizat ion Details LastModified Time Do You Have An Advance Directive? No Information n ot available 02/04/2025 Are You Blind Or Do You Have Difficulty Seeing? No Information n ot available 02/04/2025 What Is Your Level Of Caffeine Consumption? Occasional Information not available 04/28/2025 How Much Tobacco Do You Chew? None Information not available 04/28/2025 In The 14 Days Before Symptom Onset, Have You Had Close Contact With A Laboratory-confirm ed COVID-19 While That Case Was Ill? No Information n ot available 02/04/2025 In The 14 Days Before Symptom Onset, Have You Had Close Contact With A Person Who Is Under Investigation For COVID-19 While That Person Was Ill? No Information not available 02/04/2025 Have You Been To An Area Known To Be High Risk For COVID-19? No Information not available 02/04/2025 Are You Deaf Or Do You Have Serious Difficulty Hearing? No Information not available 02/04/2025 What Type Of Diet Are You Following? REGULAR Information n ot available 04/28/2025 What Is The Highest Grade Or Level Of School You Have Completed Or The Highest Degree You Have Received? [id number] Information not available 04/28/2025 Are There Any Guns Present In Your Home? No Information not available 02/04/2025 Do You Use Protection During Sex? Always Information not available 04/28/2025 Do You Use Your Seat Belt Or Car Seat Routinely? Yes Information not available 04/28/2025 Do You Have Smoke And Carbon Monoxide Detectors In Your Home? Yes Information not available 02/04/2025 At What Age Did You Start Smoking Tobacco? 0 Information not available 02/04/2025 How Much Tobacco Do You Smoke? No Information not available 04/28/2025 Do You Use Sunscreen Routinely? Yes Information not available 04/28/2025 Have You Used IV Drugs? No Information not available 04/28/2025 Sex: Unknown Functional Status Question Answer Note LastModified by Organizat ion Details LastModified Time Do you use any illicit or recreational drugs? No Information not available 02/04/2025 What is your level of alcohol consumption? Occasional Information not available 04/28/2025 Are you able to walk independently without assistance or assistive devices? YESWOREST Information not available 02/04/2025 What is your exercise level? Occasional Information not available 04/28/2025 Mental Status Question Answer Note LastModified by Organization D etails LastModified Time Do you feel stressed (tense, restless, nervous, or anxious, or unable to sleep at night)? [id number] Information not available 02/04/2025 Family History Relationship Description Onset Age of this Age Resolved Age Notes LastModified by Organization Details LastModified Time Father No current problems or disability Not available 02/04 14:27:18 Mother No current problems or disability Not available 02/04 14:27:18 Medical History Condition Response History of STI Y Acid Reflux (GERD) Y History of abnormal pap Y Anemia Y Gynecological History Statement/Question Response Flow Moderate Date of LMP 04/19/2025 Was last menstrual period normal N STIs/STDs N Date of control 02/06/2011 Date of Last Colonoscopy 06/16/2022 Sterilization Desired Control Method Hysterectom y Abnormal Pap N On BCP's at Conception? N HPV Vaccine N Colposcopy 08/05/2023 Duration of Flow (days) 4 Current Control Method Sterilizati on Age at First Child 25 Are cycles usually normal N Frequency of Cycle (Q days) 22 Sexually Active? Y Menses Monthly Y Age of first menstrual cycle 17 Date of Last Pap Smear 06/16/2022 Sexual Problems? N LMP Definite 06/16/2021 N Obstetrics History GPAL:G 2 P 0 0 0 2 Type Value Living 2 Total 2 Past Encounters Encounter ID Performer Location Encounter Start Date Encounter Closed Date Diagnosis/Indication Diagnosis SNOMED-CT Code Diagnosis ICD10 Code Diagnosis IMO Codes Diagnosis Note [id number] Mikhail Alex MD [place] [address] [address] 02/04/2025 13:36:50 02/04/2025 15:03:32 Menorrhagia [id number] N92.0 [id number] This patient is a 44-year-ol d female presents for heavy vaginal bleeding. She has longstandi ng very heavy bleeding. Her menses are regular. However, they require double protection . Patient has accidents, getting blood on her bedding and clothing. Is affected work. She changes a pad or tampon every hour. She leaks blood around the pad and tampon. This bleeding has a profound impact on her quality of life and her activities of daily living. patient has had severe anemia that required transfusio n. She has been syncopal and had profound fatigue. We discussed treatment options in detail. She would like definitive surgical treatment. We agreed to move forward with robotic assisted hysterecto my and bilateral salpingect venita. The procedure was explained to the patient in detail. She understand s the procedure. She understand s the risks, benefits, and alternativ es. She has completed the informed consent process and is ready to proceed. I spent over 30 minutes on her care in total. [id number] Mikhail Alex MD [place] [address] [address] 04/28/2025 11:01:50 05/01/2025 09:19:12 Menorrhagia [id number] N92.0 [id number] This patient is a 44-year-ol d female with severe menorrhagi a. We have agreed to perform robotic assisted hysterecto my with bilateral salpingect venita. She understand s the risks, benefits, and alternativ es. She has completed the informed consent process and is ready to proceed. Health Concerns Section Related Observation LastModified by Organization Detai ls LastModified Time None Recorded Concern Status LastModified by Organization Details LastModified Time None Recorded Advance Directives Directive N: Payers Insurance Date Sequence Insurance Name Policy Number Policy Negro Covered Member ID Negro Member ID Guarantor Name 05/02/2025 1 [place] [id number] 5 Saira Palafox [id number] Saira Palafox Notes Date Note Type Note Provider Name and Address Organization Details Recorded Time 02/04/2025 text/html This patient is a 44-year-old female presents for heavy vaginal bleeding. She has longstanding very heavy bleeding. Her menses are regular. However, they require double protection. Patient has accidents, getting blood on her bedding and clothing. Is affected work. She changes a pad or tampon every hour. She leaks blood around the pad and tampon. This bleeding has a profound impact on her quality of life and her activities of daily living. patient has had severe anemia that required transfusion. She has been syncopal and had profound fatigue. We discussed treatment options in detail. She would like definitive surgical treatment. We agreed to move forward with robotic assisted hysterectomy and bilateral salpingectomy. The procedure was explained to the patient in detail. She understands the procedure. She understands the risks, benefits, and alternatives. She has completed the informed consent process and is ready to proceed. Mikhail Alex MD [address], [place], [address], [facility] 02/04/2025 14:54:55 04/28/2025 text/html . This patient is a 44-year-old female with severe menorrhagia. We have agreed to perform robotic assisted hysterectomy with bilateral salpingectomy. She understands the risks, benefits, and alternatives. She has completed the informed consent process and is ready to proceed. The patient understands the procedure. The procedure was described to the patient in great detail. the patient also understands the risks. The risks were also explained in detail. She understands that injuries May occur during surgery. She understands these injuries can result in hospitalization, more surgery, and severe illness. She understands there is risk of hemorrhage and infection. Mikhail Alex MD [address], [place], [address], [facility] 04/29/2025 17:35:40 OBGyn Episode Ob Episode Information Episode Created Date Number of Fetuses Patient Bloodtype Patient rh Status Prepregnancy Weight lbs Domestic Partner Domestic Partner Phone Father Name Tank Wagon Operator Status 02/05/20 25 1 CLOSED Fetus Data First Name Last Name Admitted to NICU Weight (g) Sex Living Outcome Pediatric Complications Fetus ID Race Codes Race Delivery Type F Full Term [id number] Primary Vin Calculation Initial Vin Date Initial Exam Date Initial Exam Provider Initial Ultrasound Date Last Menstrual Period Date Ultra Sound Weeks Gestation 0 Eighteen To Twenty Week Vin Update Ultra Sound Date Fundal Height At Umbil Quickening Date Ultra Sound Latest Weeks Gestation Final Vin Confirmed By Final Vin Confirmed Date Final Vin Date Ultra Sound Latest Days Gestation 0 0 Menstrual History Last Menstrual Date Menses Monthly On Bcp Conception Prior Menses Frequency Hcg Plus Date Menarche Onset Age Delivery Information Delivery Date Delivery Type Labor Anesthesia Weeks Gestation Incision Type Labor Labor Length Hrs Delivered By Post Complications Tubal Sterilization Discharge Date Comments 6 Discharge Information Feeding Method Contraceptive Method Maternal HG B and HCT Levels Ob Episode Information Episode Created Date Number of Fetuses Patient Bloodtype Patient rh Status Prepregnancy Weight lbs Domestic Partner Domestic Partner Phone Father Name Tank Wagon Operator Status 02/05/20 25 1 CLOSED Fetus Data First Name Last Name Admitted to NICU Weight (g) Sex Living Outcome Pediatric Complications Fetus ID Race Codes Race Delivery Type M Full Term [id number] Repeat Vin Calculation Initial Vin Date Initial Exam Date Initial Exam Provider Initial Ultrasound Date Last Menstrual Period Date Ultra Sound Weeks Gestation 0 Eighteen To Twenty Week Vin Update Ultra Sound Date Fundal Height At Umbil Quickening Date Ultra Sound Latest Weeks Gestation Final Vin Confirmed By Final Vin Confirmed Date Final Vin Date Ultra Sound Latest Days Gestation 0 0 Menstrual History Last Menstrual Date Menses Monthly On Bcp Conception Prior Menses Frequency Hcg Plus Date Menarche Onset Age Delivery Information Delivery Date Delivery Type Labor Anesthesia Weeks Gestation Incision Type Labor Labor Length Hrs Delivered By Post Complications Tubal Sterilization Discharge Date Comments 1 Discharge Information Feeding Method Contraceptive Method Maternal HG B and HCT Levels
--- OUTSIDE RECORDS SUMMARY | 2025-05-04 05:21 | XMS_ITS | Continuity of Care Document ---
Author Organization [facility] [place] Address [address] [place] [address] Assessment No assessment recorded. Plan of Treatment Reminders Order Date Submit Date Provider Last Modified By Organization Details Last Modified Time Details Appointments Robotic TLH 2024 07:30A Archana ALEX MD Not available Not available Not available SURG POST OP 2024 08:30A Archana ALEX MD Not available Not available Not available Lab None recorded . Referral None recorded . Procedures None recorded . Surgeries None recorded . Imaging None recorded . Medication Orders None recorded . Patient TargetsNo targets recorded. Patient InstructionsNo instructions recorded. Reason for Referral None Reported. Procedures Surgical History Date Name Laterality Status Provider Name and Address Organization Details Recorded Time 4 Bariatric Surgery completed [facility] 02/04/2025 14:26:59 4 Colposcopy completed [facility] 02/04/2025 14:23:54 3 Endometrial Ablation completed [facility] 02/04/2025 14:26:59 3 Date of Last Pap Smear completed [facility] 02/04/2025 14:26:41 3 Date of Last Colonoscopy completed [facility] 02/04/2025 14:18:28 2 completed [facility] 02/04/2025 14:26:41 2 Colonoscopy completed [facility] 02/04/2025 14:26:59 1 Tubal Ligation completed [facility] 02/04/2025 14:26:59 1 Caesarean Section completed [facility] 02/04/2025 14:26:59 6 Caesarean Section completed [facility] 02/04/2025 14:27:53 Imaging Results None [...] Updated DateTime 04/28/2025 160.02 cm 34.9 kg/m2 19645.7 g 136/84 mm[Hg] Katherine Rondon [facility] 04/28/2025 11:53:01 Social History Question Answer [...] Or The Highest Degree You Have Received? [id number] Information not available 04/28/2025 Are There Any [...] anxious, or unable to sleep at night)? [id number] Information not available 02/04/2025 Family History Relationship [...] ICD10 Code Diagnosis IMO Codes Diagnosis Note [id number] Mikhail Alex MD [place] [address] [address] 04/28/2025 11:01:50 05/01/2025 09:19:12 Menorrhagia [id number] N92.0 [id number] This patient is a 44-year-ol d female [...] by Organization Details LastModified Time None Recorded Payers Encounter Date Sequence Insurance Name Policy Number Policy Negro Covered Member ID Negro Member ID Guarantor Name 04/28/2025 1 [place] [id number] 5 Saira Palafox [id number] Saira Palafox Notes Date Note Type Note Provider Name and Address Organization Details Recorded Time 04/28/2025 text/html . This patient is a [...] infection. Mikhail Alex MD [address], [place], [address], [facility] 04/29/2025 17:35:40 OBGyn Episode No OBEpisode recorded.
--- OUTSIDE RECORDS SUMMARY | 2025-05-04 05:21 | XMS_ITS | Clinical Summary ---
Author Organization [facility] Address [address] [place] [address] Phone Care Team Providers Care Gallery Intern Name Role Phone Unavailable Primary Care Provider [...] 30 mg 210 mL 06/08/2024 1:51 PM MATHEMATICS DEPARTMENT CHAIR 4 Active famotidine (PEPCID) 20 mg tablet Take 1 Tablet (20 mg) by mouth 2 times daily. 60 Tablet 2 06/08/2024 1:51 PM MATHEMATICS DEPARTMENT CHAIR 4 Active ondansetron (Zofran) 4 mg Tablet Take 1 Tablet (4 mg) by mouth every 8 hours as needed for Nausea or Vomiting. 50 Tablet 06/08/2024 1:51 PM MATHEMATICS DEPARTMENT CHAIR 4 Active Encounters Date Type Department Care Team Description 04/20/2025 External Device Data ST[facility] ABSTRACTION Provider, Abstract 04/13/2025 External Device Data [facility] ABSTRACTION Provider, Abstract 04/05/2025 External Device Data [facility] ABSTRACTION Provider, Abstract 03/08/2025 External Device Data [facility] ABSTRACTION Provider, Abstract 03/01/2025 External Device Data [facility] ABSTRACTION Provider, Abstract 02/16/2025 External Device Data [facility] ABSTRACTION Provider, Abstract 02/01/2025 External Device Data ST[facility] ABSTRACTION Provider, Abstract [...] Comments Blood Pressure 130/72 06/08/2024 11:39 AM MATHEMATICS DEPARTMENT CHAIR Pulse 78 06/08/2024 11:39 AM MATHEMATICS DEPARTMENT CHAIR Temperature 36.4 C (97.5 F) 06/08/2024 11:39 AM MATHEMATICS DEPARTMENT CHAIR Respiratory Rate 19 06/08/2024 11:39 AM MATHEMATICS DEPARTMENT CHAIR Oxygen Saturation 96% 06/08/2024 11:39 AM MATHEMATICS DEPARTMENT CHAIR Inhaled Oxygen Concentration - - Weight 123.4 kg (272 lb) 06/07/2024 11:57 AM MATHEMATICS DEPARTMENT CHAIR Height 162.6 cm (5' 4) 06/07/2024 11:57 AM MATHEMATICS DEPARTMENT CHAIR Body Mass Index 46.69 06/07/2024 11:57 AM MATHEMATICS DEPARTMENT CHAIR Plan of Treatment Health Maintenance Due Date Last Done Comments Pre-Diabetes and Diabetes Screening 1981 DTAP/TDAP/TD VACCINES (1 - Tdap) 2000 HEPATITIS B VACCINES (1 of 3 - 19+ 3-dose series) 2000 HPV/Cotest (21-29) 2002 HPV VACCINES (1 - 3-dose SCDM series) 2008 CERVICAL CANCER SCREENING 08/18/2011 HPV/Cotest (30-65) 08/18/2011 PAP SMEAR 08/18/2011 BREAST CANCER SCREENING 2021 INFLUENZA VACCINE (#1) 2025 COVID-19 Vaccine ( season) 2025, 03/23/2021 Medical Devices Implanted Type Area Laundry Equipment Operator Device Identifier Shelf Expiration Date Model / Serial / Lot Seamguard Endopath 60 [id number] - [id number] Implanted:Qt y: 1 on 06/07/2024 by Susan Deleon MD at [facility] N/A: Stomach [employer] [id number] 02/28/2027 [id number] 0A / / [id number] Seamguard Endopath 60 [id number] - [id number] Implanted:Qt y: 1 on 06/07/2024 by Susan Deleon MD at [facility] N/A: Stomach [employer] [id number] 02/28/2027 [id number] 0A / / [id number] Seamguard Endopath 60 [id number] - [id number] Implanted:Qt y: 1 on 06/07/2024 by Susan Deleon MD at [facility] N/A: Stomach [employer] [id number] 02/28/2027 [id number] 0A / / [id number] Seamguard Endopath 60 [id number] - [id number] Implanted:Qt y: 1 on 06/07/2024 by Susan Deleon MD at [facility] N/A: Stomach [employer] [id number] 02/28/2027 [id number] 0A / / [id number] Seamguard Endopath 60 [id number] - [id number] Implanted:Qt y: 1 on 06/07/2024 by Susan Deleon MD at [facility] N/A: Stomach [employer] [id number] 02/28/2027 [id number] 0A / / [id number] Executive Recruiter Ligamax Endo Multi Clip 5mm [id number] - [id number] Implanted:Qt y: 1 on 06/07/2024 by Susan Deleon MD at [facility] N/A: Abdomen [employer]- [employer] 03/15/2029 [id number] / / [id number] Insurance BCBS BLUE ACCESS/TRUE BLUE PPO RX [employer] Commercial Advance Directives For more information, please contact: [phone] * Full Code (Latest Code Status on File) Date Activated Date Inactivated Comments 06/07/2024 5:24 PM 06/08/2024 4:31 PM * Full Code Date Activated Date Inactivated Comments 06/07/2024 11:57 AM 06/07/2024 5:24 PM
--- OUTSIDE RECORDS SUMMARY | 2025-05-04 05:21 | XMS_ITS | Continuity of Care Document ---
Author Organization [facility] [place] Address [address] [place] [address] Assessment No assessment recorded. Plan of Treatment [...] with salpingec misti (SURG) 2024 025 API-830 [facility], [facility] [address], [address], 02/15/2025 13:36:42 Imaging None recorded. Medication Orders None recorded. Patient TargetsNo targets recorded. Patient InstructionsNo instructions recorded. Reason for Referral None Reported. Procedures Surgical History Date Name Laterality Status Provider Name and Address Organization Details Recorded Time 4 Bariatric Surgery completed [facility] 02/04/2025 14:26:59 4 Colposcopy completed [facility] 02/04/2025 14:23:54 3 Endometrial Ablation completed [facility] 02/04/2025 14:26:59 3 Date of Last Pap Smear completed [facility] 02/04/2025 14:26:41 3 Date of Last Colonoscopy completed [facility] 02/04/2025 14:18:28 2 completed [facility] 02/04/2025 14:26:41 2 Colonoscopy completed [facility] 02/04/2025 14:26:59 1 Tubal Ligation completed [facility] 02/04/2025 14:26:59 1 Caesarean Section completed [facility] 02/04/2025 14:26:59 6 Caesarean Section completed [facility] 02/04/2025 14:27:53 Imaging Results None recorded. [...] Updated DateTime 02/04/2025 160.02 cm 36.1 kg/m2 48505.84 g 143/87 mm[Hg] Katherine Rondon [facility] 02/04/2025 14:14:17 Social History Question Answer Notes LastModified by [...] Or The Highest Degree You Have Received? [id number] Information not available 04/28/2025 Are There Any [...] anxious, or unable to sleep at night)? [id number] Information not available 02/04/2025 Family History Relationship [...] ICD10 Code Diagnosis IMO Codes Diagnosis Note [id number] Mikhail Alex MD [place] [address] [address] 02/04/2025 13:36:50 02/04/2025 15:03:32 Menorrhagia [id number] N92.0 [id number] This patient is a 44-year-ol d female [...] 30 minutes on her care in total. Health Concerns Section Related Observation LastModified by Organization Detai ls LastModified Time None Recorded Concern Status LastModified by Organization Details LastModified Time None Recorded Payers Encounter Date Sequence Insurance Name Policy Number Policy Negro Covered Member ID Negro Member ID Guarantor Name 02/04/2025 1 [employer] [place] [id number] Saira Palafox [id number] Saira Palafox Notes Date Note Type [...] proceed. Mikhail Alex MD [address], [place], [address], [facility] 02/04/2025 14:54:55 OBGyn Episode No OBEpisode recorded.
--- OUTSIDE RECORDS SUMMARY | 2025-05-04 05:22 | XMS_ITS | Encounter Summary ---
Author Organization [facility] Address [facility] access [facility] [place] [address] Care Team Providers Care Manager Administration Name Role Phone Hieu Rincon MD Primary Care Provider Chris Montoya MD Primary Care Provider [phone] [phone] Encounter Details Date Type Department Care Team (Late st Contact Info) Description 12/31/2022 Prep for Procedure [facility] [address] [facility] [address] [place] [id number] Harrison Wright MD [address] [address] Social History Tobacco Use Types Packs/Day Years [...] unspecified documented in this encounter Care Teams Manager Administration Relationship Specialty Start Date End Date Hieu Rincon MD PCP - General INTERNAL MEDICINE 01/13/19 01/05/23 Chris Lorenzo MD [address] [place] [id number] PCP - General FAMILY PRACTICE 01/06/23 documented as of this encounter
--- OUTSIDE RECORDS SUMMARY | 2025-05-04 05:22 | XMS_ITS | Clinical Summary ---
Author Organization [facility] Address [address] [place] [address] Care Team Providers Care Boat Canvas Installer Name Role Phone Chris Lorenzo MD Primary Care Provider [phone] [phone] Allergies No known active allergies Medications valACYclovir [...] 10:16 AM CDT Height 160 cm (5' 3) 04/09/2024 10:16 AM CDT Body Mass Index 47.83 04/09/2024 10:16 AM CDT Plan of Treatment Health Maintenance Due Date Last Done Comments Cervical Cancer Screening Pa p Smear (Age 30 to 64) Every 3 Years 1981 Annual Physical 1984 Hepatitis C 08/18/1999 DTaP, Tdap and Td Vaccines ( 1 - Tdap) 2000 Hepatitis B Vaccines (1 of 3 - 19+ 3-dose series) 2000 HPV Vaccines (1 - 3-dose SCD M series) 2008 Cervical Cancer Screening Pa p with HPV Testing (Age 30 to 64) Every 5 Years 08/18/2011 Cervical Cancer Screening wi th HPV 08/18/2011 Mammogram Screening 2021 PHQ-2 (Physician Hoh) 06/16/2024 COVID-19 Vaccine (3 - 2024-2 6 season) 2025 04/13/2021, 03/23/2021 Influenza Adult (#1) 2025 Hepatitis A Vaccines Aged Out No long er eligible based on patient's age to complete [...] patient's age to complete this topic [place] [id number] Advance Directives * Full Code (Latest Code Status on File) Date Activated Date Inactivated Comments 08/05/2023 12:43 PM 08/05/2023 4:36 PM Care Teams Boat Canvas Installer Relationship Specialty Start Date End Date Chris Lorenzo MD [address] [place] [id number] PCP - General FAMILY PRACTICE 01/06/23
--- OUTSIDE RECORDS SUMMARY | 2025-05-04 05:22 | XMS_ITS | Clinical Summary ---
Author Organization [facility] Virtual Care Address [address] [place] [address] Phone Care Team Providers Care Wood Die Maker Name Role Phone Chris Lorenzo MD Primary Care Provider [phone] [phone] Allergies No known active allergies Medications dextroamphetami [...] 10:54 AM CDT Height 160 cm (5' 3) 03/16/2024 10:54 AM CDT Body Mass Index 48.71 03/16/2024 10:54 AM CDT Plan of Treatment Health Maintenance Due Date Last Done Comments Breast Cancer Screening-Mammogram 1981 Cervical Cancer Screening 1981 Depression Screening 1981 Hepatitis C Screening 1981 DTaP/Tdap/Td Vaccine (1 - Tdap) 1992 Varicella Vaccines (1 of 2 - 13+ 2-dose series) 1994 Hepatitis B Screening 08/18/1999 Regular Well Visit/Exam 18-64 08/18/1999 HPV Vaccines (1 - 3-dose SCD M series) 2008 Covid-19 Vaccine (3 - 2024-2 6 season) 2025 04/13/2021, 03/23/2021 Influenza Vaccine (#1) 2025 Pneumococcal vaccine <65 Aged Out No longer eligible based on patient's age to complete this topic Insurance [employer] [place] Care Teams Wood Die Maker Relationship Specialty Start Date End Date Chris Lorenzo MD [address] [place] [id number] PCP - General Family Medicine 02/24/24
--- OUTSIDE RECORDS SUMMARY | 2025-05-04 05:22 | XMS_ITS | Encounter Summary ---
Author Organization [facility] Address Formerly [facility], [address] [place] [address] Care Team Providers Care Real Estate Development Manager Name Role Phone Chris Lorenzo MD Primary Care Provider [phone] [phone] Encounter Details Date Type Department Care Team (Late st Contact Info) Description 04/04/2023 Therapy Plan [facility] One Day Services [address] [place], [place] [id number] Radha Pepper MD [address] [place] [address] Social History Tobacco Use Types Packs/Day Years [...] unspecified documented in this encounter Care Teams Real Estate Development Manager Relationship Specialty Start Date End Date Chris Lorenzo MD [address] [place], [place] [id number] PCP - General FAMILY PRACTICE 01/06/23 documented as of this encounter
[2025-05-04] MEDS: ACETAMINOPHEN 500 MG TABLET 1000 MG PO ×3 (06:26→19:09)
[2025-05-04] MEDS: LACTATED RINGERS 1,000 ML 30 ML IV CONT ×2 (06:30→10:02)
[2025-05-04] MEDS: KETOROLAC 15 MG/ML VIAL (*BKC) IV PUSH (06:32)
--- NOTE | 2025-05-04 07:12 | P.PNAN_ITS ---
Anes - Initial Pre Proc Eval Procedure: Operation Date: 05/04/25 07:30 Proposed Procedures p Robotic Assisted Hysterectomy with Bilateral Salpingectomy - Mikhail Koo MD Date/Time: 05/04/25 07:12 Surgeon: Mikhail Koo MD Pre Op Diagnosis: menorrhagia with regular cycle Patient Data Age: 44 Gender: F Height: 1.6 m Weight: 86.3 kg Allergies Allergy/AdvReac Type Severity Reaction Status Date / Time No Known Allergies Allergy Verified 05/04/25 07:10 Home Medications ?Medication ?Instructions ?Recorded ?Confirmed ?Type tramadol 50 mg tablet 50 mg PO Q6H PRN pain #30 ta bs 12/06/24 04/22/25 Rx valacyclovir 1 gram tablet See Rx Instructions .Route 01/24/25 05/04/25 Rx .COMPLEX #90 tabs ferrous sulfate 325 mg (65 mg 325 mg PO BID #180 tabs 03/04/25 05/04/25 Rx iron) tablet,delayed release dextroamphetamine-amphetamine 30 30 mg PO BID #60 tabs 04/01/25 05/04/25 Rx mg tablet (Adderall) pantoprazole 40 mg tablet,delayed 40 mg PO QAM #90 tab s 04/01/25 05/04/25 Rx release mecobalamin (vitamin B12) 10,000 10,000 mcg IM .q3w 05/04/25 History mcg solution for injection Patient hx anesthesia problems: none Family hx anesthesia problems: none Results Review: All pre-operative results and documents have been reviewed as part of the pre- operative evaluation. [facility] Past Medical History Medical History (Updated 05/04/25 @ 07:12 by Jean Bravo MD) Mixed hyperlipidemia ADD (attention deficit disorder) Obesity, morbid, BMI 40.0-49.9 Chronic GERD Surgical History Surgical History (Updated 05/04/25 @ 07:12 by Jean Bravo MD) History of gastric surgery H/O dilation and curettage History of endometrial ablation History of hysteroscopy History of cholecystectomy 2016 Social History Social History Social History: 08/18/24 very confident with medical forms 01/21/25 patient declined sdoh Smoking status: Former smoker Tobacco type: cigarettes Alcohol intake: current Drinks per week: 1 Alcohol use details: 3/month Substance use: never Substance use type: does not use Do You Feel Safe in your Home?: Yes Lack of Transportation: No Lack of Food: Never True Current Housing: I Have Housing Concerned About Future Housing: No Difficulty Paying Gas/Electric Bills: No Difficulty Paying for Meds: No Currently Unemployed: YES Education: Trade/Vocational Certificate Difficulty w/ Childcare or Family Care: No Living arrangements: with family Gender identity (if verbalized by the patient): Female Spiritual care concerns: No Anes - Eval Final PreProcedure Day of Procedure 05/04/25 07:12 Patient weight: obese Heart: regular rate and rhythm Lungs: clear to auscultation Airway: Mallampati scale class II Neurological: alert and oriented Last oral intake: >/= 8 hours ASA classification: III Emergent: no Anesthetic plan: proceed Anesthesia type and monitoring: general ETT and standard monitoring Results Review: All pre-operative results and documents have been reviewed as part of the pre- operative evaluation. Informed Consent: The patient's anesthetic plan and its attendant risks and benefits were discussed with the patient/family/POA. Questions were solicited and answers provided to the satisfaction of the patient/family/POA.
--- NOTE | 2025-05-04 07:17 | WPDHPUPDATE1 ---
History and Physical Update Update Date/Time: 05/04/25 07:17 History and Physical has been reviewed, including an updated exam of the patient. There are NO changes in the patient's condition. Risks, benefits, and alternatives have been discussed and questions answered. Patient agrees to proceed with procedure.
[2025-05-04] MEDS: SCOPOLAMINE 1 MG PATCH 1 PATCH TRANSDERM (07:19)
[2025-05-04 07:22] LABS: BEDSIDEPREGUCG Negative (Negative)
--- NOTE | 2025-05-04 07:43 | SUR.PREOP ---
CASE DELAYED D/T ANESTHESIA. PATIENT NOTIFIED OF DELAY.
[2025-05-04] MEDS: ceFAZolin 2 GM in SODIUM CHLORIDE 0.9% IV 50 ML 100 ML IVPB (07:53)
[2025-05-04] MEDS: METHYLENE BLUE 0.5% INJ 10 ML AMPULE IV PUSH (09:35)
--- NOTE | 2025-05-04 09:40 | S_PTH ---
PATIENT: Saira Palafox LOC: [facility] U#:[id number] AGE/SX: 44/F ROOM: RE05/04/[address]: Mikhail Koo MD : 1980 BED: DIS: 05/05/2025 SPEC #: [id number] RECD: 05/04/25 10:13 STATUS: LIZETTE REQ #: [id number] PIOTR: 05/04/25 09:[address]: Mikhail Koo DEPT: [facility] Surgical RECD BY: Lizett Herron ENTERED: 05/04/25 10:13 SP TYPE: Surgical OTHR DR: Vy Monaco APRN Tissues: A - Uterus Procedures: Hematoxylin and Eosin Stain Gross and Microscopic Level 5
[2025-05-04] MEDS: fentaNYL CITRATE INJ (*CRX) 100 MCG/2 ML VIAL 25 MCG IV PUSH ×4 (10:24→10:31)
--- NOTE | 2025-05-04 10:32 | P.OP_ITS ---
Procedure Note - Detailed Date of Procedure 05/04/25 Pre-op Diagnosis menorrhagia with regular cycle Post-op Diagnosis Same Procedure Performed Robot assisted Total hysterectomy with bilateral salpingectomy. Adhesiolysis- 20 minutes Surgeon Mikhail Koo MD Anesthesia General Indications heavy vaginal bleeding, pelvic pain Findings Adhesions between the omentum the anterior abdominal wall, mildly enlarged uterus, normal-appearing ovaries and fallopian tubes. Description of Procedure This patient was taken to the operating room. She was prepped and draped in the dorsal lithotomy position after induction of general anesthesia. The uterine manipulator and Margarito cup were placed. This was done with a speculum and tenaculum. The speculum was placed. The cervix was grasped with a tenaculum. The stay sutures were placed at 3 and 9:00 a.m.. The stay sutures of 0 Vicryl were tied to the appropriately Size scope after it was slipped around the cervix.. The tip of the ADONIS manipulator was placed in the intrauterine cavity. The cup was slid into place around the cervix and into the fornices. It was locked into place. The sutures were then wrapped around the handle and tied under tension. A 8 mm skin incision was made in the left upper quadrant the abdomen. a 5 mm Visiport trocar was inserted into abdominal cavity and pneumoperitoneum was achieved. A 8 mm supraumbilical incision was made and a 8 mm trocar was inserted into the intrauterine cavity under direct visualization of the scope. an 8 mm incision was made in the right upper quadrant of the abdomen and an 8 mm robotic trocar was placed the inter uterine cavity under direct visualization the scope. An 11 mm trocar was inserted in the right upper quadrant of the abdomen rectal is a cystoscope after an incision was made there as well. The robot was docked. Electronic Orientation of the robot was performed. Adhesiolysis adhesions between the omentum and the anterior abdominal wall was performed for 20 minutes using vessel sealer and Taniya. Bilateral ureteral lysis was performed. This was done from the pelvic brim down to the uterine artery. This was done with careful dissection using sharp and blunt dissection. The fallopian tubes were removed bilaterally. The mesosalpinx around the fallopian tubes were cauterized transected with LigaSure cautery. This was done in a bilateral fashion from the ovary to the uterine cornua. The fallopian tube was transected at the uterine cornu and amputated. The tube was taken out the left lower quadrant trocar site. In a stepwise fashion along the lateral aspects of the uterus the round ligament and broad ligaments were cauterized transected down to the level of the uterine arteries. A bladder flap was created in the bladder was moved distally to the end of the cervix and over the Margarito cup. The bilateral uterine arteries were cauterized and transected. Colpotomy was then performed. In a circumferential fashion the vagina was transected using unipolar cautery. The incision was made down on the Margarito cup. The uterus and cervix were taken out through the vagina. A pneumo occluder was placed in the vagina. The vaginal cuff was closed with a 0 V lock suture in a running fashion. The pelvis was irrigated with copious amounts antibiotic irrigation. The ureters were again examined and found to be intact and flowing freely under the uterine arteries into the bladder. The bladder was intact. It was examined directly. Cystoscopy was performed after administration of methylene blue. The cystoscope was inserted. Bladder was distended with fluid. The ureteric meatus was observed bilaterally. Blue fluid was seen to egress bilaterally. The bladder was drained and the cystoscope was withdrawn. The vagina was irrigated with Betadine solution after removal of the Pneumo occluder. the trocars were removed after the robot was undocked. The skin was closed with subacute or Dermabond. The patient was taken to recovery room. She was stable condition. Sponge lap and needle counts were correct x2. Estimated Blood Loss 125 Urine Output 800 Drains Yes Packing No Pathology Yes Complications No immediate complications Condition Stable Disposition Floor
--- NOTE | 2025-05-04 11:05 | OBPPTRN ---
Patient transferred to post room #290 via bed. Support person present. Oriented to unit, room, information board, and admission packet. Patient verbalizes understanding.
[2025-05-04] MEDS: DEXTROSE 5%/0.45% SOD CHL 1,000 ML 125 ML IV CONT (11:31)
[2025-05-04] MEDS: SIMETHICONE 80 MG TAB.CHEW PO ×2 (11:34→19:09)
[2025-05-04] MEDS: KETOROLAC 30 MG/ML VIAL (*BKC) IV PUSH ×2 (11:34→19:10)
[2025-05-04] MEDS: DOCUSATE SODIUM 100 MG CAPSULE PO (19:09)
[2025-05-04] MEDS: FERROUS SULFATE 325 MG TABLET PO (19:09)
[2025-05-05] MEDS: KETOROLAC 30 MG/ML VIAL (*BKC) IV PUSH (01:30)
[2025-05-05] MEDS: ACETAMINOPHEN 500 MG TABLET 1000 MG PO ×2 (01:30→09:09)
[2025-05-05 04:48] VITALS: BP 118/66; PULSE 69; RESP 18; TEMP 36.9; O2SAT 100
[2025-05-05 07:35] VITALS: BP 108/69; PULSE 70; RESP 18; TEMP 37; O2SAT 99
--- NOTE | 2025-05-05 10:12 | P.PNOB_ITS ---
BUSINESS PRACTICES SUPERVISOR - A/P Postoperative Procedures: Procedures Operation Date: 05/04/25 07:30 Actual Procedure Side Surgeon p Robotic Assisted Hysterectomy with Bilateral Salpingectomy Bilateral Mikhail Koo MD Postoperative day: 1 Postoperative status: doing well Postoperative plan: see orders Time Spent With Patient Time: Total time spent is greater than 50% in coordination of care (as documented) at patient's floor/unit and/or counseling patient: Time with patient: less than 15 minutes BUSINESS PRACTICES SUPERVISOR- PN:Subj Post-Op Subjective Date/time seen: 05/05/25 10:12 Subjective: patient reports feeling better, patient has no complaints and pain is well controlled Exam Const: General: healthy appearing, comfortable and no acute distress Resp: Auscultation: clear to auscultation bilaterally, no rales, no rhonchi and no wheezes Cardio: Rate: regular rate Heart sounds: no click, no murmurs and no rubs GI: Inspection: non-distended Auscultation: normal bowel sounds Extrem: General: normal to inspection, no pedal edema and no calf tenderness BUSINESS PRACTICES SUPERVISOR - PN: Obj Data Vital Signs Vital Signs: Vital Signs - 24 hr 05/04/25 10:15 05/04/25 10:30 05/04/25 10:45 Temperature Pulse Rate 65 60 57 L Respiratory Rate 13 13 12 Blood Pressure 116/84 131/83 106/79 Pulse Oximetry 100 100 98 Oxygen Delivery Simple Face Mask Room Air Room Air Oxygen Flow Rate 8 05/04/25 11:00 05/04/25 11:05 05/04/25 17:00 Temperature 97.7 F 98.2 F Pulse Rate 67 69 Respiratory Rate 16 16 Blood Pressure 117/79 118/69 Pulse Oximetry 100 98 Oxygen Delivery Room Air Oxygen Flow Rate 05/04/25 19:15 05/04/25 19:15 05/04/25 23:48 Temperature 98.6 F 98.5 F Pulse Rate 64 76 Respiratory Rate 16 16 Blood Pressure 122/71 100/61 Pulse Oximetry 99 98 Oxygen Delivery Room Air Oxygen Flow Rate 05/04/25 23:48 05/05/25 04:48 05/05/25 07:35 Temperature 98.4 F 98.6 F Pulse Rate 69 70 Respiratory Rate 18 18 Blood Pressure 118/66 108/69 Pulse Oximetry 100 99 Oxygen Delivery Room Air Oxygen Flow Rate Intake/Output Intake/Output: Intake & Output 05/02/25 05/03/25 05/04/25 05/05/25 23:59 23:59 23:59 23:59 Intake Total 670 Output Total 1755 Balance -1085 Meds/Results Medications: Active Medications Generic Name Dose Route Start Last Admin Trade Name Freq PRN Reason Stop Dose Admin Acetaminophen 1,000 mg 05/04/25 12:00 05/05/25 09:09 Acetaminophen 500 Mg Tablet PO 1,000 mg Q6HR ALISA Administration Docusate Sodium 100 mg 05/04/25 17:00 05/04/25 19:09 Docusate Sodium 100 Mg Capsule PO 100 mg BID ALISA Administration Ferrous Sulfate 325 mg 05/04/25 17:00 05/04/25 19:09 Ferrous Sulfate 325 Mg Tablet PO 325 mg BID ALISA Administration Ibuprofen 600 mg 05/05/25 06:00 Ibuprofen 600 Mg Tablet PO Q6HR [facility] Naloxone HCl 0.1 mg 05/04/25 11:10 Naloxone Hcl 0.4 Mg/Ml Vial IV PUSH Q2M PRN Respiratory rate less than 10 Ondansetron HCl 4 mg 05/04/25 11:10 Ondansetron Inj 4 Mg/2 Ml Vial IV PUSH Q6H PRN Nausea And Vomiting Oxycodone HCl 5 mg 05/04/25 11:10 Oxycodone Hcl (*Crx) 5 Mg Tab Ir PO Q4H PRN Pain Rated 4-6 Oxycodone HCl 10 mg 05/04/25 11:10 Oxycodone Hcl (*Crx) 5 Mg Tab Ir PO Q6H PRN Pain Rated 7-10 Pantoprazole Sodium 40 mg 05/05/25 09:00 Pantoprazole 40 Mg Tablet PO QAM ALISA Simethicone 80 mg 05/04/25 12:00 05/04/25 19:09 Simethicone 80 Mg Tab.Chew PO 80 mg TIDWM ALISA Administration
[2025-05-05] MEDS: oxyCODONE HCL (*CRX) 5 MG TAB IR PO (10:38)
== END 2025-05-05 10:40 | disposition home or self-care (01) ==
LOC: ANHSURGERY 05:55 → ANHOB2 11:15
PROVIDERS: PCP Nurse Practitioner Family; Visit Provider Obstetrics & Gynecology
PROC: (CPT 58571; principal; 2025-05-04 07:30)
DX: N92.0 Excessive and frequent menstruation with regular cycle (principal); N73.6 Female pelvic peritoneal adhesions (postinfective); N72 Inflammatory disease of cervix uteri; Z87.891 Personal history of nicotine dependence; E66.9 Obesity, unspecified; Z68.34 Body mass index [BMI] 34.0-34.9, adult
CPT/HCPCS: 58571; S2900; 88307; 99199; J0690; A9270; J1885; J2003; J2250; J2405; J2704; J3010; J7120; Q9968